=== PATIENT | female | born 1980 | race Caucasian/White ===

== ENCOUNTER 2022-02-21 10:41 | Inpatient (IN) | payer MEDICAID, OTHER ==
[~2022-02-21] VITALS: Ht 157.5 cm; Wt 84.5 kg
[~2022-02-21 10:41] MED LIST: NOCURR
[2022-02-21] MEDS ORDERED: SODIUM CHLORIDE 0.9% 1,000 ML IV ONE (11:15)
[2022-02-21] MEDS ORDERED: FAMOTIDINE 10 MG/ML 2 ML VIAL IVP ONE (11:15)
[2022-02-21] MEDS ORDERED: ONDANSETRON HCL 4 MG/2 ML VIAL IVP ONE (11:15)
[2022-02-21 11:39] LABS: BASOPHILS % (AUTO) 0.4 % (0.0-2.0); EOSINOPHILS % (AUTO) 0.5 % (1.0-6.0); HEMATOCRIT 38.4 % (36-46); HEMOGLOBIN 12.4 g/dL (12.0-16.0); LYMPHOCYTES # (AUTO) 1.2 K/uL (1.0-4.8); LYMPHOCYTES % (AUTO) 11.4 % (22.0-44.0); MEAN CORPUSCULAR HEMOGLOBIN 28.3 pg (26.0-34.0); MEAN CORPUSCULAR HGB CONC 32.4 G/dL (31.0-37.0); MEAN CORPUSCULAR VOLUME 87 fL (80-100); MONOCYTES # (AUTO) 0.6 K/uL (0.1-1.0); MONOCYTES % (AUTO) 5.5 % (2.0-9.0); NEUTROPHILS # (AUTO) 8.9 K/uL (1.8-7.7); NEUTROPHILS % (AUTO) 82.2 % (40.0-70.0); PLATELET COUNT (AUTO) 465 K/uL (150-450); RED CELL DISTRIBUTION WIDTH 16.2 % (11.5-14.5)
[2022-02-21 11:46] LABS: ANION GAP 8 mmol/L (8-16); CALCIUM, TOTAL 8.8 mg/dL (8.8-10.5); CARBON DIOXIDE 25 mmol/L (22-29); CHLORIDE 103 mmol/L (98-107); CREATININE 0.84 mg/dL (0.60-1.30); GLUCOSE,RANDOM 112 mg/dL (70-110); POTASSIUM 3.7 mmol/L (3.5-5.1); SODIUM SERUM 136 mmol/L (136-145); UREA NITROGEN, BLOOD 9 mg/dL (7-18)
[2022-02-21 11:53] LABS: GLOMERULAR FILTR. RATE CALC > 60 mL/min (>60)
[2022-02-21 11:59] LABS: ALANINE AMINOTRANSFERASE 642 U/L (12-78); ALBUMIN 3.4 g/dL (3.4-5.0); ALKALINE PHOSPHATASE 304 U/L (46-116); ASPARTATE AMINOTRANSFERASE 349 U/L (15-37); BILIRUBIN,TOTAL 3.2 mg/dL (0.1-1.0); HCG,QUANTITATIVE < 1 mIU/mL (0-6); LIPASE 1393 U/L (73-393); TOTAL PROTEIN, SERUM 7.9 g/dL (6.4-8.2)
[2022-02-21 12:56] LABS: COVID AG,FIA SOURCE NASOPHARYNGEAL
[2022-02-21] MEDS ORDERED: MetroNIDAZOLE 250 MG TABLET PO ONE (14:30)
[2022-02-21] MEDS ORDERED: CefTRIAXone 1 GM/DEXTROSE 50 ML IV ONE (14:30)
[2022-02-21] MEDS ORDERED: GADOTERATE MEGLUMINE 10 MMOL/20 ML VIAL IVP ONE (14:45)
[2022-02-21] MEDS ORDERED: MAGNESIUM HYDROXIDE SUSPENSION 30 ML UDCUP PO PRN (18:00)
[2022-02-21] MEDS ORDERED: ONDANSETRON HCL 4 MG/2 ML VIAL IVP PRN (18:00)
[2022-02-21] MEDS ORDERED: ZOLPIDEM TARTRATE 5 MG TABLET PO PRN (18:00)
[2022-02-21] MEDS ORDERED: ACETAMINOPHEN 325 MG TABLET PO PRN (18:00)
[2022-02-21] MEDS ORDERED: OxyCODONE HCL/ACETAMINOPHEN 5-325 MG TABLET PO PRN (18:00)
[2022-02-21] MEDS ORDERED: IPRATROPIUM BROMIDE 0.5 MG/2.5 ML NEB SOLUTION NEB PRN (18:00)
[2022-02-21] MEDS ORDERED: MORPHINE SULFATE 2 MG/ML SYRINGE IVP PRN (18:00)
[2022-02-21] MEDS ORDERED: BISACODYL 10 MG RECTAL RECTAL SUPPOSITORY PR PRN (18:00)
[2022-02-21] MEDS ORDERED: ALBUTEROL SULFATE 2.5 MG/0.5 ML NEB SOLUTION NEB PRN (18:00)
[2022-02-21] MEDS: DEXTROSE 5%-0.45% SODIUM CHL 1,000 ML IV SCH (18:41)
[2022-02-21] MEDS ORDERED: SODIUM CHLORIDE 0.9% 250 ML IV ONE (20:34)
[2022-02-21] MEDS: DOCUSATE SODIUM 100 MG CAPSULE PO SCH (20:35)
[2022-02-21 20:37] VITALS: BP 113/77
[2022-02-21] MEDS: MetroNIDAZOLE 500 MG/NACL 100 ML IV SCH (22:40)
[2022-02-21] MEDS: HEPARIN SODIUM,PORCINE 5,000 UNITS/ML VIAL SQ SCH (23:35)
[2022-02-22 04:20] VITALS: BP 107/57
[2022-02-22] MEDS: MetroNIDAZOLE 500 MG/NACL 100 ML IV SCH ×3 (06:13→21:04)
[2022-02-22 06:25] LABS: BASOPHILS % (AUTO) 0.6 % (0.0-2.0); EOSINOPHILS % (AUTO) 0.9 % (1.0-6.0); HEMATOCRIT 36.5 % (36-46); HEMOGLOBIN 11.8 g/dL (12.0-16.0); LYMPHOCYTES # (AUTO) 1.4 K/uL (1.0-4.8); LYMPHOCYTES % (AUTO) 20.1 % (22.0-44.0); MEAN CORPUSCULAR HEMOGLOBIN 28.4 pg (26.0-34.0); MEAN CORPUSCULAR HGB CONC 32.3 G/dL (31.0-37.0); MEAN CORPUSCULAR VOLUME 88 fL (80-100); MONOCYTES # (AUTO) 0.4 K/uL (0.1-1.0); MONOCYTES % (AUTO) 6.2 % (2.0-9.0); NEUTROPHILS # (AUTO) 5.2 K/uL (1.8-7.7); NEUTROPHILS % (AUTO) 72.2 % (40.0-70.0); PLATELET COUNT (AUTO) 433 K/uL (150-450); RED BLOOD CELL COUNT(AUTO) 4.14 MIL/uL (4.00-5.20); RED CELL DISTRIBUTION WIDTH 16.2 % (11.5-14.5)
[2022-02-22 06:50] LABS: ALANINE AMINOTRANSFERASE 404 U/L (12-78); ALBUMIN 2.8 g/dL (3.4-5.0); ALKALINE PHOSPHATASE 261 U/L (46-116); ANION GAP 8 mmol/L (8-16); ASPARTATE AMINOTRANSFERASE 117 U/L (15-37); BILIRUBIN,TOTAL 1.3 mg/dL (0.1-1.0); CALCIUM, TOTAL 8.1 mg/dL (8.8-10.5); CARBON DIOXIDE 26 mmol/L (22-29); CHLORIDE 104 mmol/L (98-107); CREATININE 0.82 mg/dL (0.60-1.30); GLUCOSE,RANDOM 97 mg/dL (70-110); POTASSIUM 3.5 mmol/L (3.5-5.1); SODIUM SERUM 138 mmol/L (136-145); TOTAL PROTEIN, SERUM 6.8 g/dL (6.4-8.2)
[2022-02-22 07:03] LABS: UREA NITROGEN, BLOOD 7 mg/dL (7-18)
[2022-02-22 07:04] LABS: GLOMERULAR FILTR. RATE CALC > 60 mL/min (>60)
[2022-02-22 08:00] VITALS: BP 100/69
[2022-02-22] MEDS: HEPARIN SODIUM,PORCINE 5,000 UNITS/ML VIAL SQ SCH ×2 (08:00→15:33)
[2022-02-22] MEDS: DEXTROSE 5%-0.45% SODIUM CHL 1,000 ML IV SCH ×3 (08:18→23:06)
[2022-02-22] MEDS: DOCUSATE SODIUM 100 MG CAPSULE PO SCH ×2 (08:19→21:04)
[2022-02-22] MEDS: PANTOPRAZOLE SODIUM 40 MG/VIAL IVP SCH (08:19)
[2022-02-22 08:24] LABS: AMYLASE 119 U/L (25-115); LIPASE 712 U/L (73-393)
[2022-02-22] MEDS ORDERED: SODIUM CHLORIDE 0.9% 1,000 ML ONE ×3 (10:17→15:55)
[2022-02-22] MEDS ORDERED: BUPIVACAINE 0.25%/EPI 1:200,000/PF 10 ML VIAL ONE (13:42)
[2022-02-22] MEDS ORDERED: IOHEXOL 240 MG/ML 50 ML VIAL ONE (13:42)
[2022-02-22] MEDS ORDERED: SODIUM CL IRRIG SOLN BAG 0 ML IRRIG ONE (13:42)
[2022-02-22] MEDS: CefTRIAXone 1 GM/DEXTROSE 50 ML IV SCH (14:57)
[2022-02-22 15:15] VITALS: BP 99/55
[2022-02-22] MEDS ORDERED: SODIUM CHLORIDE 0.9% 1,000 ML IV ONE (16:00)
[2022-02-22] MEDS ORDERED: SUGAMMADEX SODIUM 200 MG/2 ML VIAL IVP ONE (16:26)
[2022-02-22 20:00] VITALS: BP 92/57
[2022-02-23] MEDS: DEXTROSE 5%-0.45% SODIUM CHL 1,000 ML IV SCH ×3 (01:31→18:38)
[2022-02-23 03:42] VITALS: BP 97/63
[2022-02-23] MEDS ORDERED: METOCLOPRAMIDE HCL 5 MG/ML 2 ML VIAL IVP ONE (05:39)
[2022-02-23] MEDS ORDERED: DEXAMETHASONE SOD PHOS 4 MG/ML VIAL IVP ONE (05:39)
[2022-02-23] MEDS ORDERED: CefoTEtan DISODIUM 1 GM/VIAL IVP ONE (05:39)
[2022-02-23] MEDS ORDERED: KETOROLAC TROMETHAMINE 60 MG/2 ML VIAL IM ONE (05:39)
[2022-02-23] MEDS ORDERED: ROCURONIUM BROMIDE 10 MG/ML 5 ML VIAL IVP ONE (05:39)
[2022-02-23] MEDS ORDERED: ONDANSETRON HCL 4 MG/2 ML VIAL IVP ONE (05:39)
[2022-02-23] MEDS ORDERED: FentaNYL CITRATE PF 100 MCG/2 ML VIAL IVP ONE (05:39)
[2022-02-23] MEDS ORDERED: PROPOFOL 1% 20 ML VIAL IVP ONE (05:39)
[2022-02-23] MEDS ORDERED: MIDAZOLAM HCL 2 MG/2 ML VIAL IVP ONE (05:39)
[2022-02-23] MEDS ORDERED: LABETALOL HCL 5 MG/ML 20 ML VIAL IVP ONE (05:39)
[2022-02-23] MEDS: MetroNIDAZOLE 500 MG/NACL 100 ML IV SCH ×4 (06:08→22:04)
[2022-02-23 06:12] LABS: BASOPHILS % (AUTO) 0.6 % (0.0-2.0); EOSINOPHILS % (AUTO) 0.1 % (1.0-6.0); HEMATOCRIT 40.6 % (36-46); HEMOGLOBIN 13.3 g/dL (12.0-16.0); LYMPHOCYTES # (AUTO) 1.2 K/uL (1.0-4.8); LYMPHOCYTES % (AUTO) 13.6 % (22.0-44.0); MEAN CORPUSCULAR HEMOGLOBIN 28.9 pg (26.0-34.0); MEAN CORPUSCULAR HGB CONC 32.6 G/dL (31.0-37.0); MEAN CORPUSCULAR VOLUME 89 fL (80-100); MONOCYTES # (AUTO) 0.4 K/uL (0.1-1.0); MONOCYTES % (AUTO) 4.8 % (2.0-9.0); NEUTROPHILS % (AUTO) 80.9 % (40.0-70.0); PLATELET COUNT (AUTO) 474 K/uL (150-450); RED BLOOD CELL COUNT(AUTO) 4.58 MIL/uL (4.00-5.20); RED CELL DISTRIBUTION WIDTH 16.5 % (11.5-14.5)
[2022-02-23 06:32] LABS: ALANINE AMINOTRANSFERASE 305 U/L (12-78); ALBUMIN 3.1 g/dL (3.4-5.0); ALKALINE PHOSPHATASE 247 U/L (46-116); ANION GAP 10 mmol/L (8-16); ASPARTATE AMINOTRANSFERASE 74 U/L (15-37); BILIRUBIN,TOTAL 0.9 mg/dL (0.1-1.0); CALCIUM, TOTAL 8.4 mg/dL (8.8-10.5); CARBON DIOXIDE 24 mmol/L (22-29); CHLORIDE 104 mmol/L (98-107); CREATININE 0.76 mg/dL (0.60-1.30); GLUCOSE,RANDOM 120 mg/dL (70-110); PHOSPHORUS 3.2 mg/dL (2.5-4.9); POTASSIUM 3.6 mmol/L (3.5-5.1); SODIUM SERUM 138 mmol/L (136-145); TOTAL PROTEIN, SERUM 7.4 g/dL (6.4-8.2); UREA NITROGEN, BLOOD 5 mg/dL (7-18)
[2022-02-23 06:38] LABS: GLOMERULAR FILTR. RATE CALC > 60 mL/min (>60)
[2022-02-23 08:04] VITALS: BP 112/70
[2022-02-23] MEDS: PANTOPRAZOLE SODIUM 40 MG/VIAL IVP SCH (08:51)
[2022-02-23] MEDS: DOCUSATE SODIUM 100 MG CAPSULE PO SCH ×2 (08:57→22:04)
[2022-02-23] MEDS ORDERED: RINGERS SOLUTION,LACTATED 0 ML IV ONE (09:17)
[2022-02-23] MEDS ORDERED: RINGERS SOLUTION,LACTATED 1,000 ML IV ONE (10:01)
[2022-02-23] MEDS ORDERED: EPINEPHrine 1:10,000 [1 MG/10 ML] SYRINGE ONE (12:13)
[2022-02-23] MEDS ORDERED: ETHYL ALCOHOL 62% ANTISEPTIC NASAL SANITIZER 0.6 ML AMPUL NASAL ONE (12:45)
[2022-02-23] MEDS ORDERED: SODIUM CHLORIDE 0.9% 1,000 ML ONE (13:06)
[2022-02-23] MEDS ORDERED: BUPIVACAINE 0.25%/EPI 1:200,000/PF 10 ML VIAL ONE (13:06)
[2022-02-23] MEDS ORDERED: FentaNYL CITRATE PF 100 MCG/2 ML VIAL IVP PRN (14:15)
[2022-02-23] MEDS ORDERED: HYDROmorphone 2 MG/ML VIAL IVP PRN (14:15)
[2022-02-23] MEDS ORDERED: SUGAMMADEX SODIUM 200 MG/2 ML VIAL IVP ONE (14:53)
[2022-02-23] MEDS ORDERED: SODIUM CHLORIDE 0.9% 1,000 ML IV ONE (15:58)
[2022-02-23] MEDS: CefTRIAXone 1 GM/DEXTROSE 50 ML IV SCH (16:00)
[2022-02-23 17:12] VITALS: BP 127/83
[2022-02-23 19:46] VITALS: BP 106/67
[2022-02-23] MEDS: OXYGEN THERAPY IH SCH (20:00)
[2022-02-24 04:05] VITALS: BP 99/63
[2022-02-24 06:07] LABS: BASOPHILS % (AUTO) 0.2 % (0.0-2.0); EOSINOPHILS % (AUTO) 0.1 % (1.0-6.0); HEMATOCRIT 37.4 % (36-46); HEMOGLOBIN 12.2 g/dL (12.0-16.0); LYMPHOCYTES # (AUTO) 1.7 K/uL (1.0-4.8); LYMPHOCYTES % (AUTO) 14.7 % (22.0-44.0); MEAN CORPUSCULAR HGB CONC 32.7 G/dL (31.0-37.0); MEAN CORPUSCULAR VOLUME 89 fL (80-100); MONOCYTES # (AUTO) 0.6 K/uL (0.1-1.0); MONOCYTES % (AUTO) 5.4 % (2.0-9.0); NEUTROPHILS # (AUTO) 9.3 K/uL (1.8-7.7); NEUTROPHILS % (AUTO) 79.6 % (40.0-70.0); PLATELET COUNT (AUTO) 484 K/uL (150-450); RED BLOOD CELL COUNT(AUTO) 4.22 MIL/uL (4.00-5.20)
[2022-02-24] MEDS ORDERED: ROCURONIUM BROMIDE 10 MG/ML 5 ML VIAL IVP ONE (06:23)
[2022-02-24] MEDS ORDERED: FentaNYL CITRATE PF 100 MCG/2 ML VIAL IVP ONE (06:23)
[2022-02-24] MEDS ORDERED: MIDAZOLAM HCL 2 MG/2 ML VIAL IVP ONE (06:23)
[2022-02-24] MEDS ORDERED: LIDOCAINE/PF 2% 5 ML VIAL IM ONE (06:23)
[2022-02-24] MEDS ORDERED: KETOROLAC TROMETHAMINE 60 MG/2 ML VIAL IM ONE (06:23)
[2022-02-24] MEDS ORDERED: ONDANSETRON HCL 4 MG/2 ML VIAL IVP ONE (06:23)
[2022-02-24] MEDS ORDERED: PROPOFOL 1% 20 ML VIAL IVP ONE (06:23)
[2022-02-24] MEDS ORDERED: METOCLOPRAMIDE HCL 5 MG/ML 2 ML VIAL IVP ONE (06:23)
[2022-02-24] MEDS ORDERED: DEXAMETHASONE SOD PHOS 4 MG/ML VIAL IVP ONE (06:23)
[2022-02-24 06:24] LABS: AMYLASE 136 U/L (25-115); LIPASE 912 U/L (73-393)
[2022-02-24] MEDS: MetroNIDAZOLE 500 MG/NACL 100 ML IV SCH ×3 (06:25→21:13)
[2022-02-24 06:26] LABS: ALANINE AMINOTRANSFERASE 417 U/L (12-78); ALBUMIN 3.3 g/dL (3.4-5.0); ALKALINE PHOSPHATASE 218 U/L (46-116); ANION GAP 7 mmol/L (8-16); ASPARTATE AMINOTRANSFERASE 193 U/L (15-37); BILIRUBIN,TOTAL 0.8 mg/dL (0.1-1.0); CARBON DIOXIDE 27 mmol/L (22-29); CHLORIDE 105 mmol/L (98-107); CREATININE 0.77 mg/dL (0.60-1.30); GLUCOSE,RANDOM 103 mg/dL (70-110); POTASSIUM 4.7 mmol/L (3.5-5.1); SODIUM SERUM 139 mmol/L (136-145); TOTAL PROTEIN, SERUM 7.6 g/dL (6.4-8.2); UREA NITROGEN, BLOOD 6 mg/dL (7-18)
[2022-02-24] MEDS: DEXTROSE 5%-0.45% SODIUM CHL 1,000 ML IV SCH ×3 (06:27→19:41)
[2022-02-24 06:32] LABS: GLOMERULAR FILTR. RATE CALC > 60 mL/min (>60)
[2022-02-24] MEDS: OXYGEN THERAPY IH SCH ×2 (08:00→19:50)
[2022-02-24 08:19] VITALS: BP 107/62
[2022-02-24] MEDS: DOCUSATE SODIUM 100 MG CAPSULE PO SCH ×2 (08:27→21:13)
[2022-02-24] MEDS: PANTOPRAZOLE SODIUM 40 MG/VIAL IVP SCH (08:29)
[2022-02-24 14:54] VITALS: BP 104/70
[2022-02-24] MEDS: CefTRIAXone 1 GM/DEXTROSE 50 ML IV SCH (15:29)
[2022-02-24 19:35] VITALS: BP 111/62
[2022-02-25] MEDS: DEXTROSE 5%-0.45% SODIUM CHL 1,000 ML IV SCH ×2 (02:15→09:42)
[2022-02-25 05:01] VITALS: BP 108/70
[2022-02-25] MEDS: MetroNIDAZOLE 500 MG/NACL 100 ML IV SCH ×2 (06:27→13:01)
[2022-02-25 06:34] LABS: BASOPHILS % (AUTO) 0.3 % (0.0-2.0); EOSINOPHILS % (AUTO) 0.4 % (1.0-6.0); HEMATOCRIT 37.3 % (36-46); LYMPHOCYTES # (AUTO) 1.9 K/uL (1.0-4.8); LYMPHOCYTES % (AUTO) 17.9 % (22.0-44.0); MEAN CORPUSCULAR HEMOGLOBIN 28.7 pg (26.0-34.0); MEAN CORPUSCULAR HGB CONC 32.1 G/dL (31.0-37.0); MEAN CORPUSCULAR VOLUME 90 fL (80-100); MONOCYTES # (AUTO) 0.6 K/uL (0.1-1.0); MONOCYTES % (AUTO) 5.4 % (2.0-9.0); NEUTROPHILS # (AUTO) 8.1 K/uL (1.8-7.7); PLATELET COUNT (AUTO) 462 K/uL (150-450); RED BLOOD CELL COUNT(AUTO) 4.17 MIL/uL (4.00-5.20)
[2022-02-25 06:48] LABS: ALANINE AMINOTRANSFERASE 290 U/L (12-78); ALBUMIN 3.2 g/dL (3.4-5.0); ALKALINE PHOSPHATASE 183 U/L (46-116); AMYLASE 116 U/L (25-115); ANION GAP 4 mmol/L (8-16); ASPARTATE AMINOTRANSFERASE 87 U/L (15-37); BILIRUBIN,TOTAL 0.7 mg/dL (0.1-1.0); CALCIUM, TOTAL 8.6 mg/dL (8.8-10.5); CARBON DIOXIDE 29 mmol/L (22-29); CHLORIDE 104 mmol/L (98-107); CREATININE 0.86 mg/dL (0.60-1.30); GLUCOSE,RANDOM 115 mg/dL (70-110); LIPASE 744 U/L (73-393); POTASSIUM 4.2 mmol/L (3.5-5.1); SODIUM SERUM 137 mmol/L (136-145); TOTAL PROTEIN, SERUM 7.4 g/dL (6.4-8.2); UREA NITROGEN, BLOOD 6 mg/dL (7-18)
[2022-02-25 06:49] LABS: GLOMERULAR FILTR. RATE CALC > 60 mL/min (>60)
[2022-02-25 07:32] VITALS: BP 120/69
[2022-02-25] MEDS: OXYGEN THERAPY IH SCH (08:00)
[2022-02-25] MEDS: PANTOPRAZOLE SODIUM 40 MG/VIAL IVP SCH (08:10)
[2022-02-25] MEDS: DOCUSATE SODIUM 100 MG CAPSULE PO SCH (08:10)
[2022-02-25 15:07] VITALS: BP 126/77
[2022-02-25] MEDS: CefTRIAXone 1 GM/DEXTROSE 50 ML IV SCH (15:46)
== END 2022-02-25 16:40 | disposition home or self-care (01) | DRG 263 ==
LOC: EMS 10:54 → 6N 18:36
PROVIDERS: ADMIT Hospitalist; ATTEND Hospitalist
PROC: BF131ZZ Fluoroscopy of Gallbladder and Bile Ducts using Low Osmolar Contrast (ICD-10-PCS; 2022-02-22)
PROC: 0FC98ZZ Extirpation of Matter from Common Bile Duct, Via Natural or Artificial Opening Endoscopic (ICD-10-PCS; 2022-02-22)
PROC: 0F798DZ Dilation of Common Bile Duct with Intraluminal Device, Via Natural or Artificial Opening Endoscopic (ICD-10-PCS; principal; 2022-02-22 16:00)
PROC: 0FT44ZZ Resection of Gallbladder, Percutaneous Endoscopic Approach (ICD-10-PCS; 2022-02-23)
DX: K80.64 Calculus of gallbladder and bile duct with chronic cholecystitis without obstruction (principal); K85.10 Biliary acute pancreatitis without necrosis or infection; E66.9 Obesity, unspecified; Z20.822 Contact with and (suspected) exposure to COVID-19; Z68.34 Body mass index [BMI] 34.0-34.9, adult; K91.61 Intraoperative hemorrhage and hematoma of a digestive system organ or structure complicating a digestive system procedure; Y83.9 Surgical procedure, unspecified as the cause of abnormal reaction of the patient, or of later complication, without mention of misadventure at the time of the procedure
CPT/HCPCS: 74183; 76705; 80053; 82150; 83690; 83735; 84100; 84702; 85025; 87081; 99285; C9113; G0238; J0171; J0696; J1100; J1644; J1885; J2250; J2405; J2704; J2765; J3010; J3490; J7030; J7050; J7120; Q9966; Q9967

== ENCOUNTER 2023-02-07 07:05 | Emergency (ER) | payer MEDICAID ==
[~2023-02-07] VITALS: Ht 157.5 cm; Wt 72.7 kg
[2023-02-07 07:12] VITALS: TEMP 98
[2023-02-07] MEDS ORDERED: CYCLOBENZAPRINE HCL 10 MG TABLET PO ONE (08:00)
[2023-02-07] MEDS ORDERED: LIDOCAINE 5% TRANSDERMAL PATCH TD ONE (08:00)
[2023-02-07] MEDS ORDERED: KETOROLAC TROMETHAMINE 30 MG/ML VIAL IM ONE (08:00)
[2023-02-07] MEDS ORDERED: IBUP-1492 PO (09:08)
[2023-02-07] MEDS ORDERED: CYCL-448 PO (09:08)
[2023-02-07] MEDS ORDERED: LIDO700A15 TP (09:08)
[2023-02-07 09:25] VITALS: BP 128/74; PULSE 75; RESP 16
== END 2023-02-07 09:25 | disposition home or self-care (01) ==
LOC: EMS 07:05
DX: S30.0XXA Contusion of lower back and pelvis, initial encounter (principal); Z90.49 Acquired absence of other specified parts of digestive tract; W18.39XA Other fall on same level, initial encounter; Y93.89 Activity, other specified; Y92.89 Other specified places as the place of occurrence of the external cause; Y99.8 Other external cause status
CPT/HCPCS: 99283; 72100; 96372; J1885

== ENCOUNTER 2023-05-09 12:42 | Emergency (ER) | payer MEDICAID ==
[~2023-05-09] VITALS: Ht 160 cm; Wt 68.0 kg
[~2023-05-09 12:42] MED LIST changes: +CYCL-448 PO; +IBUP-1492 PO; +LIDO700A15 TP; -NOCURR
[2023-05-09 12:59] VITALS: TEMP 98.1
[2023-05-09 13:31] LABS: BASOPHILS % (AUTO) 0.6 % (0.0-2.0); EOSINOPHILS % (AUTO) 3.1 % (1.0-6.0); HEMATOCRIT 34.3 % (36-46); HEMOGLOBIN 11.4 g/dL (12.0-16.0); LYMPHOCYTES # (AUTO) 1.8 K/uL (1.0-4.8); LYMPHOCYTES % (AUTO) 29.1 % (22.0-44.0); MEAN CORPUSCULAR HEMOGLOBIN 28.1 pg (26.0-34.0); MEAN CORPUSCULAR HGB CONC 33.3 G/dL (31.0-37.0); MEAN CORPUSCULAR VOLUME 84 fL (80-100); MONOCYTES # (AUTO) 0.4 K/uL (0.1-1.0); MONOCYTES % (AUTO) 6.3 % (2.0-9.0); NEUTROPHILS # (AUTO) 3.8 K/uL (1.8-7.7); NEUTROPHILS % (AUTO) 60.9 % (40.0-70.0); PLATELET COUNT (AUTO) 393 K/uL (150-450); RED BLOOD CELL COUNT(AUTO) 4.08 MIL/uL (4.00-5.20); RED CELL DISTRIBUTION WIDTH 15.1 % (11.5-14.5); WHITE BLOOD COUNT (AUTO) 6.3 K/uL (4.5-11.0)
[2023-05-09 13:46] LABS: ANION GAP 10 mmol/L (8-16); CALCIUM, TOTAL 8.5 mg/dL (8.8-10.5); CARBON DIOXIDE 25 mmol/L (22-29); CHLORIDE 106 mmol/L (98-107); CREATININE 0.93 mg/dL (0.60-1.30); GLOMERULAR FILTR. RATE CALC > 60 mL/min (>60); GLUCOSE,RANDOM 129 mg/dL (70-110); POTASSIUM 3.6 mmol/L (3.5-5.1); SODIUM SERUM 141 mmol/L (136-145); UREA NITROGEN, BLOOD 14 mg/dL (7-18)
[2023-05-09 13:57] LABS: ALANINE AMINOTRANSFERASE 29 U/L (12-78); ALBUMIN 3.1 g/dL (3.4-5.0); ALKALINE PHOSPHATASE 77 U/L (46-116); ASPARTATE AMINOTRANSFERASE 21 U/L (15-37); BILIRUBIN,TOTAL 0.5 mg/dL (0.1-1.0); LIPASE 35 U/L (16-77); TOTAL PROTEIN, SERUM 7.4 g/dL (6.4-8.2)
[2023-05-09 14:00] LABS: COVID AG,FIA SOURCE NASAL SWAB
[2023-05-09 14:25] LABS: INFLUENZA TYPE A NEGATIVE FOR TYPE A (NEGATIVE); INFLUENZA TYPE B NEGATIVE FOR TYPE B (NEGATIVE)
[2023-05-09 14:34] LABS: SARS-COV2 (COVID) ANTIGEN,FIA Positive (Negative)
[2023-05-09] MEDS ORDERED: ONDANSETRON HCL 4 MG TABLET PO ONE (14:45)
[2023-05-09] MEDS ORDERED: ONDA-104 PO (14:49)
[2023-05-09 15:14] VITALS: BP 114/72; PULSE 86; RESP 16
== END 2023-05-09 15:18 | disposition home or self-care (01) ==
LOC: EMS 12:58
DX: U07.1 COVID-19 (principal); Z90.49 Acquired absence of other specified parts of digestive tract
CPT/HCPCS: 99283; 87426; 80053; 83690; 84703; 85025; 87804; 36415; Q0162

== ENCOUNTER 2023-07-18 14:10 | Emergency (ER) | payer MEDICAID ==
[~2023-07-18] VITALS: Ht 160 cm; Wt 86.4 kg
[~2023-07-18 14:10] MED LIST changes: +ONDA-104 PO
[2023-07-18 14:16] VITALS: BP 108/69; PULSE 82; RESP 18; TEMP 96.7
[2023-07-18] MEDS: IBUPROFEN 600 MG TABLET PO ONE (16:18)
[2023-07-18] MEDS ORDERED: IBUP-1492 PO (16:38)
== END 2023-07-18 17:13 | disposition home or self-care (01) ==
LOC: EMS 14:16
DX: S63.613A Unspecified sprain of left middle finger, initial encounter (principal); M72.2 Plantar fascial fibromatosis; M79.672 Pain in left foot; Z90.49 Acquired absence of other specified parts of digestive tract; W23.0XXA Caught, crushed, jammed, or pinched between moving objects, initial encounter; Y93.89 Activity, other specified; Y92.89 Other specified places as the place of occurrence of the external cause; Y99.8 Other external cause status
CPT/HCPCS: 99284

== ENCOUNTER 2023-12-24 15:57 | Emergency (ER) | payer MEDICAID ==
[~2023-12-24] VITALS: Ht 160 cm; Wt 84.5 kg
[~2023-12-24 15:57] MED LIST changes: -ONDA-104 PO
[2023-12-24 16:59] VITALS: BP 109/69; PULSE 66; RESP 16; TEMP 98
[2023-12-24] MEDS: ACETAMINOPHEN 500 MG TABLET PO ONE (17:01)
[2023-12-24] MEDS ORDERED: IBUP-1492 PO (17:45)
[2023-12-24] MEDS ORDERED: ACET-3385 PO (17:45)
== END 2023-12-24 19:12 | disposition home or self-care (01) ==
LOC: EMS 15:57
DX: S83.91XA Sprain of unspecified site of right knee, initial encounter (principal); S60.211A Contusion of right wrist, initial encounter; Z90.49 Acquired absence of other specified parts of digestive tract; V49.88XA Car occupant (driver) (passenger) injured in other specified transport accidents, initial encounter; Y93.89 Activity, other specified; Y92.89 Other specified places as the place of occurrence of the external cause; Y99.8 Other external cause status
CPT/HCPCS: 99284; 73030-TC; 73110-TC; 73130-TC; 73562-TC; Z7502; Z7610

== ENCOUNTER 2023-12-30 12:32 | Emergency (ER) | payer MEDICAID ==
[~2023-12-30] VITALS: Ht 162.6 cm; Wt 84.1 kg
[~2023-12-30 12:32] MED LIST changes: +ACET-3385 PO
[2023-12-30 15:06] LABS: APPEARANCE,URINE CLEAR (CLEAR); BILIRUBIN,URINE NEGATIVE (NEGATIVE); COLOR,URINE LIGHT YELLOW (YELLOW); GLUCOSE, URINE (UA) NEGATIVE (NEGATIVE); KETONES,URINE NEGATIVE (NEGATIVE); LEUKOCYTE ESTERASE ,URINE SMALL (NEGATIVE); NITRATE,URINE NEGATIVE (NEGATIVE); OCCULT BLOOD,URINE SMALL (NEGATIVE); PROTEIN,URINE NEGATIVE (NEGATIVE); SPECIFIC GRAVITIY, URINE 1.024 (1.003-1.030); UROBILINOGEN,URINE <=1.0 mg/dL (<=1.0)
[2023-12-30 15:39] LABS: BACTERIA,URINE Few /HPF (None Seen); RBC,URINE 0-2 /HPF (0-2); WBC,URINE 0-2 /HPF (0-5)
[2023-12-30 16:11] VITALS: TEMP 98.2
[2023-12-30] MEDS ORDERED: CYCL-448 PO (16:12)
[2023-12-30 16:22] VITALS: BP 127/75; PULSE 76; RESP 18
== END 2023-12-30 16:29 | disposition home or self-care (01) ==
LOC: EMS 12:32
DX: M54.50 Low back pain, unspecified (principal); M25.552 Pain in left hip; J45.909 Unspecified asthma, uncomplicated; Z90.49 Acquired absence of other specified parts of digestive tract
CPT/HCPCS: 72220; 81001; 84703; 99284; Z7502

== ENCOUNTER 2024-06-09 10:33 | Emergency (ER) | payer SELFPAY ==
[~2024-06-09] VITALS: Ht 157.5 cm; Wt 86.4 kg
[2024-06-09 10:36] VITALS: TEMP 98
[2024-06-09] MEDS ORDERED: ACET-66 PO (12:22)
[2024-06-09] MEDS ORDERED: IBUP-1554 PO (12:22)
[2024-06-09] MEDS: ACETAMINOPHEN 500 MG TABLET PO ONE (12:42)
[2024-06-09] MEDS: IBUPROFEN 600 MG TABLET PO ONE (12:43)
[2024-06-09 12:47] VITALS: BP 122/71; PULSE 91; RESP 18; O2SAT 98
== END 2024-06-09 12:49 | disposition home or self-care (01) ==
LOC: EMS 10:34
DX: S60.222A Contusion of left hand, initial encounter (principal); J45.909 Unspecified asthma, uncomplicated; Z90.49 Acquired absence of other specified parts of digestive tract; W23.0XXA Caught, crushed, jammed, or pinched between moving objects, initial encounter; Y93.89 Activity, other specified; Y92.89 Other specified places as the place of occurrence of the external cause; Y99.8 Other external cause status
CPT/HCPCS: 99283